=== PATIENT | male | born 1935 | race African-American/Black ===

== ENCOUNTER 2018-04-26 07:13 | Day surgery (SDC) | payer MEDICARE ==
[~2018-04-26] VITALS: Ht 167.6 cm; Wt 67.6 kg
[~2018-04-26 07:13] MED LIST: ADOVART; ATOR10TA PO; ELIQUIS PO; NOVOLOG FLEXPEN; RAMI10CA19 PO
[2018-04-26] MEDS ORDERED: CLOP75TA16 PO (08:09)
[2018-04-26] MEDS ORDERED: DUTA0.5C2 PO (08:09)
[2018-04-26] MEDS ORDERED: VIAG100 PO (08:09)
[2018-04-26] MEDS ORDERED: BUDE6HFA IH (08:09)
[2018-04-26] MEDS ORDERED: ASPI-1159 PO (08:09)
[2018-04-26] MEDS ORDERED: ERGO400C PO (08:10)
[2018-04-26] MEDS ORDERED: METF-414 PO (08:10)
[2018-04-26] MEDS ORDERED: MESA800T PO (08:10)
[2018-04-26] MEDS ORDERED: INSU300I SQ (08:10)
[2018-04-26] MEDS ORDERED: INSNOV SUBCUT (08:10)
[2018-04-26] MEDS ORDERED: ATOR10TA PO (08:10)
[2018-04-26] MEDS ORDERED: IODIXANOL 320MG/ML 100 ML BOTTLE IV ONE (08:38)
[2018-04-26] MEDS ORDERED: LIDOCAINE HCL 1% 20ML VIAL (Pyxis) INJ ONE (08:38)
[2018-04-26] MEDS ORDERED: MIDAZOLAM HCL 2 MG/2 ML VIAL ONE (09:03)
[2018-04-26] MEDS ORDERED: FENTANYL CITRATE/PF 50MCG/ML 2ML VIAL ONE (09:04)
== END 2018-04-26 16:00 | disposition home or self-care (01) ==
LOC: CCL 07:13
PROVIDERS: ATTEND Specialist
DX: I70.211 Atherosclerosis of native arteries of extremities with intermittent claudication, right leg (principal); J44.9 Chronic obstructive pulmonary disease, unspecified; I25.10 Atherosclerotic heart disease of native coronary artery without angina pectoris; C34.90 Malignant neoplasm of unspecified part of unspecified bronchus or lung; I10 Essential (primary) hypertension; E11.9 Type 2 diabetes mellitus without complications; E78.5 Hyperlipidemia, unspecified; K76.0 Fatty (change of) liver, not elsewhere classified; K50.90 Crohn's disease, unspecified, without complications
CPT/HCPCS: 36246; 75710; 82962; 99152; C1760; C1769; C1893; J1644; J2250; J3010; J3490; Q9967; G0500

== ENCOUNTER → 2018-05-22 | Outpatient (CLI) | payer MEDICARE, MEDICAID ==
[~2018-05-22] MED LIST changes: -ADOVART; +ASPI-1159 PO; +BUDE6HFA IH; +CLOP75TA16 PO; +DUTA0.5C2 PO; -ELIQUIS PO; +ERGO400C PO; +INSNOV SUBCUT; +INSU300I SQ; +MESA800T PO; +METF-414 PO; -NOVOLOG FLEXPEN; +VIAG100 PO
== END | disposition home or self-care (01) ==
LOC: RAD 09:31
PROVIDERS: ATTEND Internal Medicine Hematology & Oncology
DX: M85.80 Other specified disorders of bone density and structure, unspecified site (principal); C34.11 Malignant neoplasm of upper lobe, right bronchus or lung; D47.1 Chronic myeloproliferative disease; D47.2 Monoclonal gammopathy; D63.8 Anemia in other chronic diseases classified elsewhere; Z86.718 Personal history of other venous thrombosis and embolism
CPT/HCPCS: 77075

== ENCOUNTER → 2018-08-16 | Outpatient (CLI) | payer MEDICARE, MEDICAID ==
[~2018-08-16] MED LIST changes: -ASPI-1159 PO; +ASPI-1393 PO; +BARIUM SULFATE(VOLUMEN) 450 ML ORAL.SUSP ONE; -CLOP75TA16 PO; +CLOP75TA4 PO; +IOHEXOL-350 100 ML BOTTLE ONE
== END | disposition home or self-care (01) ==
LOC: CT 08:25
PROVIDERS: ATTEND Internal Medicine Gastroenterology
DX: K57.90 Diverticulosis of intestine, part unspecified, without perforation or abscess without bleeding (principal)
CPT/HCPCS: 74177; Q9967

== ENCOUNTER → 2019-03-01 | Outpatient (CLI) | payer MEDICARE, MEDICAID ==
[~2019-03-01] MED LIST changes: -ASPI-1393 PO; +ASPI-1497 PO; -BARIUM SULFATE(VOLUMEN) 450 ML ORAL.SUSP ONE; -IOHEXOL-350 100 ML BOTTLE ONE; -RAMI10CA19 PO; +RAMI10CA68 PO
== END | disposition home or self-care (01) ==
LOC: RAD 11:56
PROVIDERS: ATTEND Family Medicine Adult Medicine
DX: I67.82 Cerebral ischemia (principal); G31.9 Degenerative disease of nervous system, unspecified

== ENCOUNTER → 2020-01-15 | Outpatient (CLI) | payer MEDICARE, MEDICAID ==
[~2020-01-15] MED LIST changes: +LINA5TAB MT; +OMEP20CA14 MT
== END | disposition home or self-care (01) ==
LOC: LAB 13:15
PROVIDERS: ATTEND Specialist
DX: Z01.812 Encounter for preprocedural laboratory examination (principal); R05 Cough; Z20.828 Contact with and (suspected) exposure to other viral communicable diseases
CPT/HCPCS: 87426

== ENCOUNTER → 2021-02-26 | Outpatient (CLI) | payer MEDICARE, MEDICAID ==
[~2021-02-26] MED LIST changes: +BARIUM SULFATE(VOLUMEN) 450 ML ORAL.SUSP ONE; +CLOP-31 PO; -CLOP75TA4 PO; +IOHEXOL-350 100 ML BOTTLE ONE
== END | disposition home or self-care (01) ==
LOC: CT 08:37
PROVIDERS: ATTEND Internal Medicine Gastroenterology
DX: K57.30 Diverticulosis of large intestine without perforation or abscess without bleeding (principal); K50.00 Crohn's disease of small intestine without complications; N28.1 Cyst of kidney, acquired; I70.0 Atherosclerosis of aorta; J43.2 Centrilobular emphysema; N28.89 Other specified disorders of kidney and ureter
CPT/HCPCS: 74177; Q9967

== ENCOUNTER 2021-06-09 22:09 | Inpatient (IN) | payer MEDICARE, MEDICAID ==
[~2021-06-09] VITALS: Ht 165.1 cm; Wt 70.8 kg
[~2021-06-09 22:09] MED LIST changes: +AZIT250T MT; -BARIUM SULFATE(VOLUMEN) 450 ML ORAL.SUSP ONE; -IOHEXOL-350 100 ML BOTTLE ONE; +METH-653 GT
[2021-06-10] VITALS (8 sets, daily range): BP systolic 129–155; BP diastolic 53–94
[2021-06-10] MEDS ORDERED: METHYLPREDNISOLONE SOD SUCC 125 MG/2 ML VIAL IV STA (01:07)
[2021-06-10] MEDS ORDERED: IPRATROPIUM BROMIDE (0.02%) 0.5MG/2.5ML NEB HHN STA (01:07)
[2021-06-10] MEDS ORDERED: MAGNESIUM 2 G PREMIX 50 ML IV ONE (01:15)
[2021-06-10] MEDS: ALBUTEROL (0.083%) 2.5MG/3ML NEB HHN SCH (01:30)
[2021-06-10 02:26] LABS: HEMOGLOBIN. 8.4 g/dL (14.0-18.0); MEAN CORPUSCULAR HEMOGLOBIN 29.2 pg (28.0-32.0); MEAN CORPUSCULAR VOLUME 90.4 fL (80.0-94.0); MEAN PLATELET VOLUME 7.7 fl (7.4-10.4); PLATELET 786 x1000/uL (130-400); RED BLOOD CELL COUNT 2.88 mill/uL (4.7-6.1); RED CELL DISTRIBUTION WIDTH 14.9 % (11.6-14.6)
[2021-06-10 02:35] LABS: CHLORIDE 98 mEq/L (98-107)
[2021-06-10] MEDS ORDERED: CLONIDINE 0.1MG TABLET PO PRN (03:30)
[2021-06-10] MEDS ORDERED: ACETAMINOPHEN 650MG SUPP PR PRN ×2 (03:30)
[2021-06-10] MEDS ORDERED: GUAIFENESIN 200MG/10ML SUGAR FREE UDC PO PRN (03:30)
[2021-06-10] MEDS ORDERED: DOCUSATE SODIUM 100MG CAPSULE PO PRN (03:30)
[2021-06-10] MEDS ORDERED: MAGNESIUM/ALUMINUM HYDROXIDE/SIMETHICONE 30ML UDC PO PRN (03:30)
[2021-06-10] MEDS ORDERED: ONDANSETRON HCL 4MG/2ML INJ IV PRN (03:30)
[2021-06-10] MEDS ORDERED: PIPERACILLIN/TAZ 3.375G PREMIX 50 ML IV NR (03:30)
[2021-06-10] MEDS ORDERED: VANCOMYCIN 1GM PMX (XELLIA) 200 ML IV NR (03:30)
[2021-06-10] MEDS ORDERED: DEXTROSE 50% WATER 50ML SYRINGE IV PRN (03:30)
[2021-06-10] MEDS ORDERED: IPRATROPIUM/ALBUTEROL 0.5-3(2.5)MG/3ML NEB HHN PRN (03:30)
[2021-06-10] MEDS ORDERED: ACETAMINOPHEN 325MG TABLET PO PRN ×2 (03:30)
[2021-06-10 04:24] LABS: PLATELET ESTIMATE INCREASED
[2021-06-10 05:06] LABS: CHLORIDE 99 mEq/L (98-107)
[2021-06-10 05:17] LABS: CREATINE KINASE 88 IU/L (39-308); HDL CHOLESTEROL 39 mg/dL (40-59); LDL CHOLESTEROL 66 mg/dL (5-100)
[2021-06-10 05:22] LABS: BETA HYDROXYBUTYRATE 0.5 mMol/L (0.0-0.3)
[2021-06-10 06:57] LABS: MEAN CORPUSCULAR HEMOGLOBIN 29.6 pg (28.0-32.0); MEAN CORPUSCULAR VOLUME 88.9 fL (80.0-94.0); MEAN PLATELET VOLUME 7.5 fl (7.4-10.4); PLATELET 643 x1000/uL (130-400); RED BLOOD CELL COUNT 2.27 mill/uL (4.7-6.1); RED CELL DISTRIBUTION WIDTH 14.7 % (11.6-14.6)
[2021-06-10 07:07] LABS: HEMATOCRIT. 20.2 % (42.0-52.0)
[2021-06-10 07:12] LABS: HEMOGLOBIN. 6.7 g/dL (14.0-18.0)
[2021-06-10] MEDS ORDERED: INSULIN LISPRO 100 UNITS/ML SUBCUT NR (07:45)
[2021-06-10] MEDS: BLOOD SUGAR DIAGNOSTIC STRIP TEST SCH ×4 (08:02→21:19)
[2021-06-10] MEDS: INSULIN LISPRO 100 UNITS/ML SUBCUT SCH ×4 (08:10→21:22)
[2021-06-10 08:23] LABS: ATYPICAL LYMPHOCYTES 1; PLATELET ESTIMATE INCREASED
[2021-06-10] MEDS ORDERED: ENOXAPARIN 30MG/0.3ML SYR SUBCUT SCH (09:00)
[2021-06-10] MEDS ORDERED: AMLODIPINE 2.5MG TABLET PO NR (13:00)
[2021-06-10] MEDS ORDERED: CEFTRIAXONE 1 G PREMIX 50 ML IV SCH (14:00)
[2021-06-10] MEDS: PREDNISONE 20MG TABLET PO SCH (14:41)
[2021-06-10] MEDS: CEFTRIAXONE 1,000 MG in DEXTROSE 5% WATER 50 ML IV SCH (15:59)
[2021-06-10 17:09] LABS: CLARITY URINE CLEAR (CLEAR); COLOR URINE YELLOW (YELLOW); KETONES URINE NEGATIVE (NEGATIVE); LEUKOCYTE ESTERASE URINE NEGATIVE (NEGATIVE); NITRITE URINE NEGATIVE (NEGATIVE); OCCULT BLOOD URINE TRACE (NEGATIVE); PROTEIN URINE 1+ (NEGATIVE); SPECIFIC GRAVITY URINE 1.026 (1.005-1.030); UROBILINOGEN URINE 0.2 E.U./dL (0.2-1.0)
[2021-06-10] MEDS: AZITHROMYCIN 500 MG in DEXT 5% WATER 250 ML IV SCH (18:22)
[2021-06-10 18:23] LABS: HEMATOCRIT 26.3 % (42.0-52.0); HEMOGLOBIN 8.6 g/dL (14.0-18.0); MEAN CORPUSCULAR HEMOGLOBIN 29.5 pg (28.0-32.0); MEAN CORPUSCULAR VOLUME 89.7 fL (80.0-94.0); PLATELET 672 x1000/uL (130-400); RED BLOOD CELL COUNT 2.93 mill/uL (4.7-6.1); RED CELL DISTRIBUTION WIDTH 14.1 % (11.6-14.6)
[2021-06-10 18:25] LABS: HEMOGLOBIN 8.6 g/dL (14.0-18.0)
[2021-06-10 18:45] LABS: FIBRINOGEN > 850 mg/dL (200-400)
[2021-06-10 18:52] LABS: TOTAL IRON BINDING CAPACITY 274 ug/dL (250-450)
[2021-06-10 19:05] LABS: FERRITIN 286 ng/mL (22-322)
[2021-06-10 20:36] LABS: VITAMIN B12 SERUM >2000 pg/mL pg/mL (211-911)
[2021-06-10] MEDS: AMLODIPINE 2.5MG TABLET PO SCH (21:19)
[2021-06-10] MEDS: ATORVASTATIN CALCIUM 10MG TABLET PO SCH (21:19)
[2021-06-11] VITALS: BP 140/68
[2021-06-11 04:00] VITALS: BP 153/64
[2021-06-11] MEDS: INSULIN LISPRO 100 UNITS/ML SUBCUT SCH ×4 (06:09→21:00)
[2021-06-11] MEDS: BLOOD SUGAR DIAGNOSTIC STRIP TEST SCH ×4 (06:10→21:46)
[2021-06-11 06:30] LABS: HEMOGLOBIN. 8.6 g/dL (14.0-18.0); MEAN CORPUSCULAR HEMOGLOBIN 29.3 pg (28.0-32.0); MEAN CORPUSCULAR VOLUME 88.3 fL (80.0-94.0); MEAN PLATELET VOLUME 7.7 fl (7.4-10.4); PLATELET 690 x1000/uL (130-400); RED BLOOD CELL COUNT 2.94 mill/uL (4.7-6.1); RED CELL DISTRIBUTION WIDTH 14.4 % (11.6-14.6)
[2021-06-11 06:40] LABS: CHLORIDE 102 mEq/L (98-107)
[2021-06-11 06:57] LABS: TOTAL IRON BINDING CAPACITY 197 ug/dL (250-450)
[2021-06-11 08:10] VITALS: BP 159/64
[2021-06-11] MEDS: AMLODIPINE 2.5MG TABLET PO SCH ×2 (09:15→21:37)
[2021-06-11] MEDS: PREDNISONE 20MG TABLET PO SCH (09:15)
[2021-06-11] MEDS: INSULIN GLARGINE 100 UNITS/ML SUBCUT SCH ×2 (11:46→21:47)
[2021-06-11 12:00] VITALS: BP 154/66
[2021-06-11] MEDS: CEFTRIAXONE 1,000 MG in DEXTROSE 5% WATER 50 ML IV SCH (12:27)
[2021-06-11 12:42] LABS: PLATELET ESTIMATE INCREASED
[2021-06-11] MEDS: AZITHROMYCIN 500 MG in DEXT 5% WATER 250 ML IV SCH (13:42)
[2021-06-11] MEDS ORDERED: INSULIN LISPRO 100 UNITS/ML SUBCUT NR (13:45)
[2021-06-11] MEDS ORDERED: BUDESONIDE 0.5MG/2ML NEB HHN SCH (14:00)
[2021-06-11 16:00] VITALS: BP 163/63
[2021-06-11 20:00] VITALS: BP 138/57
[2021-06-11] MEDS: ATORVASTATIN CALCIUM 10MG TABLET PO SCH (21:37)
[2021-06-12] VITALS: BP 143/60
[2021-06-12 04:00] VITALS: BP 158/67
[2021-06-12 06:17] LABS: BASOPHILS % 0.3 % (0.0-2.0); EOSINOPHILS % 0.6 % (0.0-5.0); HEMATOCRIT. 27.1 % (42.0-52.0); LYMPHOCYTES % 8.4 % (20.0-50.0); MEAN CORPUSCULAR HEMOGLOBIN 29.3 pg (28.0-32.0); MEAN CORPUSCULAR VOLUME 88.1 fL (80.0-94.0); MEAN PLATELET VOLUME 7.9 fl (7.4-10.4); MONOCYTES % 5.5 % (2.0-8.0); NEUTROPHILS % 85.2 % (40.0-76.0); PLATELET 788 x1000/uL (130-400); RED BLOOD CELL COUNT 3.07 mill/uL (4.7-6.1); RED CELL DISTRIBUTION WIDTH 14.4 % (11.6-14.6)
[2021-06-12] MEDS: BLOOD SUGAR DIAGNOSTIC STRIP TEST SCH ×2 (06:52→11:33)
[2021-06-12 07:01] LABS: CHLORIDE 104 mEq/L (98-107)
[2021-06-12 07:07] LABS: PHOSPHORUS 2.3 mg/dL (2.5-4.9)
[2021-06-12 08:00] VITALS: BP 157/66
[2021-06-12] MEDS: INSULIN GLARGINE 100 UNITS/ML SUBCUT SCH (08:58)
[2021-06-12] MEDS: INSULIN LISPRO 100 UNITS/ML SUBCUT SCH ×2 (08:59→11:55)
[2021-06-12] MEDS: AMLODIPINE 2.5MG TABLET PO SCH (08:59)
[2021-06-12 12:00] VITALS: BP 170/81
[2021-06-12 13:11] VITALS: BP 141/66
[2021-06-12] MEDS: CEFTRIAXONE 1,000 MG in DEXTROSE 5% WATER 50 ML IV SCH (13:14)
[2021-06-12 13:24] VITALS: BP 141/66
[2021-06-12] MEDS: AZITHROMYCIN 500 MG in DEXT 5% WATER 250 ML IV SCH (14:08)
== END 2021-06-12 16:43 | disposition home health service (06) | DRG 871 ==
LOC: ER 22:09 → MICUSO 06-10 02:34 → 6WST 06-10 05:28
PROVIDERS: ADMIT Family Medicine Adult Medicine; ATTEND Family Medicine Adult Medicine
PROC: 30233N1 Transfusion of Nonautologous Red Blood Cells into Peripheral Vein, Percutaneous Approach (ICD-10-PCS; principal; 2021-06-10)
DX: A41.9 Sepsis, unspecified organism (principal); J96.01 Acute respiratory failure with hypoxia; J18.9 Pneumonia, unspecified organism; E44.0 Moderate protein-calorie malnutrition; D62 Acute posthemorrhagic anemia; J44.0 Chronic obstructive pulmonary disease with (acute) lower respiratory infection; K50.90 Crohn's disease, unspecified, without complications; K92.2 Gastrointestinal hemorrhage, unspecified; K57.90 Diverticulosis of intestine, part unspecified, without perforation or abscess without bleeding; E11.65 Type 2 diabetes mellitus with hyperglycemia; E11.51 Type 2 diabetes mellitus with diabetic peripheral angiopathy without gangrene; D75.839 Thrombocytosis, unspecified; E78.00 Pure hypercholesterolemia, unspecified; E78.5 Hyperlipidemia, unspecified; N40.0 Benign prostatic hyperplasia without lower urinary tract symptoms; I25.10 Atherosclerotic heart disease of native coronary artery without angina pectoris; I10 Essential (primary) hypertension; R07.9 Chest pain, unspecified; M81.0 Age-related osteoporosis without current pathological fracture; R55 Syncope and collapse; Z20.822 Contact with and (suspected) exposure to COVID-19; Z92.3 Personal history of irradiation; Z87.01 Personal history of pneumonia (recurrent); Z90.2 Acquired absence of lung [part of]; Z87.440 Personal history of urinary (tract) infections; Z86.16 Personal history of COVID-19; Z85.118 Personal history of other malignant neoplasm of bronchus and lung; Z86.718 Personal history of other venous thrombosis and embolism; Z82.49 Family history of ischemic heart disease and other diseases of the circulatory system; Z86.73 Personal history of transient ischemic attack (TIA), and cerebral infarction without residual deficits; Z95.5 Presence of coronary angioplasty implant and graft; Z83.3 Family history of diabetes mellitus; Z79.899 Other long term (current) drug therapy; Z79.82 Long term (current) use of aspirin; Z79.02 Long term (current) use of antithrombotics/antiplatelets; Z79.4 Long term (current) use of insulin; Z87.891 Personal history of nicotine dependence; Z68.26 Body mass index [BMI] 26.0-26.9, adult
CPT/HCPCS: 36415; 71045; 80048; 80053; 80061; 81003; 82010; 82550; 82607; 82728; 82746; 82962; 83036; 83540; 83550; 83605; 83735; 83880; 84100; 84145; 84443; 84484; 85018; 85025; 85027; 85044; 85384; 86850; 86900; 86920; 87426; 93005; 93306; 93970; 94640; 99285; J0456; J0696; J1650; J1815; J2543; J2930; J3370; J3475; J7060; J7512; P9016

== ENCOUNTER 2022-01-30 15:53 | Emergency (ER) | payer MEDICARE, MEDICAID ==
[~2022-01-30] VITALS: Ht 167.6 cm; Wt 77.0 kg
[2022-01-30 21:10] LABS: BASOPHILS % 1.5 % (0.0-2.0); EOSINOPHILS % 4.1 % (0.0-5.0); HEMOGLOBIN. 12.5 g/dL (14.0-18.0); LYMPHOCYTES % 23.1 % (20.0-50.0); MEAN CORPUSCULAR HEMOGLOBIN 30.3 pg (28.0-32.0); MEAN CORPUSCULAR VOLUME 89.4 fL (80.0-94.0); MEAN PLATELET VOLUME 8.2 fl (7.4-10.4); MONOCYTES % 9.5 % (2.0-8.0); NEUTROPHILS % 61.8 % (40.0-76.0); PLATELET 551 x1000/uL (130-400); RED BLOOD CELL COUNT 4.13 mill/uL (4.7-6.1); RED CELL DISTRIBUTION WIDTH 13.5 % (11.6-14.6)
[2022-01-30] MEDS ORDERED: MECL-186 MT (21:16)
[2022-01-30 21:17] LABS: CHLORIDE 107 mEq/L (98-107)
[2022-01-30 22:14] VITALS: BP 179/69
== END 2022-01-30 22:20 | disposition home or self-care (01) ==
LOC: ER 16:40
DX: I63.531 Cerebral infarction due to unspecified occlusion or stenosis of right posterior cerebral artery (principal); I10 Essential (primary) hypertension; E11.9 Type 2 diabetes mellitus without complications; J44.9 Chronic obstructive pulmonary disease, unspecified; Z86.73 Personal history of transient ischemic attack (TIA), and cerebral infarction without residual deficits; Z79.4 Long term (current) use of insulin; Z79.82 Long term (current) use of aspirin
CPT/HCPCS: 36415; 71045; 80053; 82962; 84484; 85025; 93005; 99285

== ENCOUNTER 2022-04-23 12:43 | Inpatient (IN) | payer MEDICARE, MEDICAID ==
[~2022-04-23] VITALS: Ht 167.6 cm; Wt 54.9 kg
[~2022-04-23 12:43] MED LIST changes: +MECL-186 MT
[2022-04-23 16:44] LABS: CHLORIDE 111 mEq/L (98-107)
[2022-04-23] MEDS ORDERED: CLONIDINE 0.1MG TABLET PO PRN (16:45)
[2022-04-23] MEDS ORDERED: ACETAMINOPHEN 325MG TABLET PO PRN (16:45)
[2022-04-23] MEDS ORDERED: ONDANSETRON HCL 4MG/2ML INJ IV PRN (16:45)
[2022-04-23] MEDS ORDERED: MORPHINE SULFATE 2 MG/ML CPJ (NOT FOR IM USE) IV PRN (16:45)
[2022-04-23 16:48] LABS: BASOPHILS % 0.7 % (0.0-2.0); EOSINOPHILS % 3.3 % (0.0-5.0); HEMATOCRIT. 31.4 % (42.0-52.0); LYMPHOCYTES % 16.7 % (20.0-50.0); MEAN CORPUSCULAR HEMOGLOBIN 29.5 pg (28.0-32.0); MEAN CORPUSCULAR VOLUME 92.6 fL (80.0-94.0); MONOCYTES % 11.3 % (2.0-8.0); PLATELET 499 x1000/uL (130-400); RED BLOOD CELL COUNT 3.39 mill/uL (4.7-6.1); RED CELL DISTRIBUTION WIDTH 13.4 % (11.6-14.6)
[2022-04-23] MEDS ORDERED: ATORVASTATIN CALCIUM 10MG TABLET PO SCH (17:00)
[2022-04-23] MEDS ORDERED: DEXTROSE 50% WATER 50ML SYRINGE IV PRN (17:00)
[2022-04-23] MEDS ORDERED: CALCIUM CHLORIDE 1GM/10ML SYR IV NR (17:30)
[2022-04-23] MEDS ORDERED: INSULIN REGULAR (HUMULIN R) 300UNITS/3ML VIAL IV NR (17:30)
[2022-04-23] MEDS ORDERED: DEXTROSE 50% WATER 50ML SYRINGE IV NR (17:30)
[2022-04-23] MEDS ORDERED: SODIUM POLYSTYRENE SULFONATE 15 G/60 ML BOT PO NR (17:30)
[2022-04-23] MEDS ORDERED: SODIUM BICARBONATE 8.4% 1 MEQ/ML 50ML SYR IV ONE (17:45)
[2022-04-23] MEDS ORDERED: ALBUTEROL (0.083%) 2.5MG/3ML NEB HHN ONE (17:45)
[2022-04-23] MEDS ORDERED: SODIUM POLYSTYRENE SULFONATE 15 G/60 ML BOT PO ONE (17:45)
[2022-04-23] MEDS ORDERED: DEXTROSE 50% WATER 50ML SYRINGE IV ONE (17:45)
[2022-04-23] MEDS ORDERED: INSULIN REGULAR (HUMULIN R) 300UNITS/3ML VIAL IV ONE (17:45)
[2022-04-23] MEDS: ENOXAPARIN 40MG/0.4ML SYR SUBCUT SCH (18:00)
[2022-04-23] MEDS: BLOOD SUGAR DIAGNOSTIC STRIP TEST SCH ×2 (19:22→21:00)
[2022-04-23] MEDS: INSULIN LISPRO 100 UNITS/ML SUBCUT SCH ×2 (19:23→21:00)
[2022-04-24] VITALS (7 sets, daily range): BP systolic 121–151; BP diastolic 50–74
[2022-04-24] MEDS: BLOOD SUGAR DIAGNOSTIC STRIP TEST SCH ×4 (05:46→20:45)
[2022-04-24] MEDS: INSULIN LISPRO 100 UNITS/ML SUBCUT SCH ×4 (05:46→20:44)
[2022-04-24 07:38] LABS: BASOPHILS % 0.7 % (0.0-2.0); EOSINOPHILS % 2.9 % (0.0-5.0); HEMATOCRIT. 27.6 % (42.0-52.0); HEMOGLOBIN. 9.2 g/dL (14.0-18.0); LYMPHOCYTES % 17.1 % (20.0-50.0); MEAN CORPUSCULAR HEMOGLOBIN 30.1 pg (28.0-32.0); MEAN CORPUSCULAR VOLUME 90.1 fL (80.0-94.0); MEAN PLATELET VOLUME 8.2 fl (7.4-10.4); MONOCYTES % 13.5 % (2.0-8.0); NEUTROPHILS % 65.8 % (40.0-76.0); PLATELET 457 x1000/uL (130-400); RED BLOOD CELL COUNT 3.07 mill/uL (4.7-6.1); RED CELL DISTRIBUTION WIDTH 13.5 % (11.6-14.6)
[2022-04-24] MEDS ORDERED: NALOXONE HCL 0.4MG/ML VIAL IV PRN (08:00)
[2022-04-24 08:33] LABS: CHLORIDE 113 mEq/L (98-107)
[2022-04-24] MEDS: METFORMIN HCL 500MG TABLET PO SCH ×3 (09:00→18:03)
[2022-04-24] MEDS: LINAGLIPTIN 5MG TABLET PO SCH (10:14)
[2022-04-24] MEDS: ASPIRIN 81MG EC TABLET PO SCH (10:14)
[2022-04-24] MEDS: CLOPIDOGREL 75MG TABLET PO SCH (10:14)
[2022-04-24] MEDS: AZITHROMYCIN 250 MG TABLET PO SCH (12:29)
[2022-04-24] MEDS: ENOXAPARIN 40MG/0.4ML SYR SUBCUT SCH (18:07)
[2022-04-24] MEDS: DUTASTERIDE 0.5MG CAPSULE PO SCH ×2 (20:43→20:46)
[2022-04-24] MEDS: ATORVASTATIN CALCIUM 10MG TABLET PO SCH (20:43)
[2022-04-25] VITALS: BP 127/49
[2022-04-25 04:00] VITALS: BP 109/48
[2022-04-25 06:29] LABS: BASOPHILS % 0.6 % (0.0-2.0); EOSINOPHILS % 2.9 % (0.0-5.0); HEMATOCRIT. 28.9 % (42.0-52.0); HEMOGLOBIN. 9.4 g/dL (14.0-18.0); LYMPHOCYTES % 19.4 % (20.0-50.0); MEAN CORPUSCULAR HEMOGLOBIN 29.5 pg (28.0-32.0); MEAN CORPUSCULAR VOLUME 90.6 fL (80.0-94.0); MEAN PLATELET VOLUME 7.7 fl (7.4-10.4); MONOCYTES % 12.6 % (2.0-8.0); NEUTROPHILS % 64.5 % (40.0-76.0); PLATELET 453 x1000/uL (130-400); RED BLOOD CELL COUNT 3.19 mill/uL (4.7-6.1); RED CELL DISTRIBUTION WIDTH 13.2 % (11.6-14.6)
[2022-04-25] MEDS: BLOOD SUGAR DIAGNOSTIC STRIP TEST SCH ×4 (06:45→21:57)
[2022-04-25] MEDS: INSULIN LISPRO 100 UNITS/ML SUBCUT SCH ×4 (06:45→21:00)
[2022-04-25 07:13] LABS: CHLORIDE 111 mEq/L (98-107)
[2022-04-25 08:00] VITALS: BP 118/41
[2022-04-25] MEDS: METFORMIN HCL 500MG TABLET PO SCH ×2 (08:27→17:30)
[2022-04-25] MEDS: CLOPIDOGREL 75MG TABLET PO SCH (08:28)
[2022-04-25] MEDS: LINAGLIPTIN 5MG TABLET PO SCH (08:28)
[2022-04-25] MEDS: ASPIRIN 81MG EC TABLET PO SCH (08:28)
[2022-04-25] MEDS: AZITHROMYCIN 250 MG TABLET PO SCH (08:28)
[2022-04-25] MEDS ORDERED: GUAIFENESIN-DM 200MG-20MG/10ML UDC PO PRN (10:30)
[2022-04-25 10:32] LABS: CREATINE KINASE 57 IU/L (39-308)
[2022-04-25 12:00] VITALS: BP 128/46
[2022-04-25] MEDS: OMEPRAZOLE 20MG CAPSULE EXTENDED RELEASE PO SCH (12:31)
[2022-04-25] MEDS ORDERED: SODIUM CHLORIDE 0.45% 500 ML IV ONE (14:00)
[2022-04-25 16:00] VITALS: BP 138/52
[2022-04-25] MEDS ORDERED: ENOXAPARIN 30MG/0.3ML SYR SUBCUT SCH (18:00)
[2022-04-25 20:00] VITALS: BP 141/51
[2022-04-25] MEDS: ATORVASTATIN CALCIUM 10MG TABLET PO SCH (21:56)
[2022-04-26] VITALS: BP_SYST 126; BP_SYST 147; BP_DIAS 44; BP_DIAS 50
[2022-04-26 04:00] VITALS: BP 126/44
[2022-04-26] MEDS: DUTASTERIDE 0.5MG CAPSULE PO SCH (06:04)
[2022-04-26] MEDS: INSULIN LISPRO 100 UNITS/ML SUBCUT SCH ×2 (06:04→12:10)
[2022-04-26] MEDS: BLOOD SUGAR DIAGNOSTIC STRIP TEST SCH ×2 (06:04→12:07)
[2022-04-26] MEDS: OMEPRAZOLE 20MG CAPSULE EXTENDED RELEASE PO SCH (06:04)
[2022-04-26 06:36] LABS: BASOPHILS % 0.6 % (0.0-2.0); HEMATOCRIT. 25.9 % (42.0-52.0); HEMOGLOBIN. 8.5 g/dL (14.0-18.0); LYMPHOCYTES % 23.6 % (20.0-50.0); MEAN CORPUSCULAR HEMOGLOBIN 29.6 pg (28.0-32.0); MEAN CORPUSCULAR VOLUME 90.1 fL (80.0-94.0); MONOCYTES % 12.2 % (2.0-8.0); NEUTROPHILS % 59.6 % (40.0-76.0); PLATELET 435 x1000/uL (130-400); RED BLOOD CELL COUNT 2.88 mill/uL (4.7-6.1); RED CELL DISTRIBUTION WIDTH 13.2 % (11.6-14.6)
[2022-04-26 07:59] LABS: CHLORIDE 109 mEq/L (98-107)
[2022-04-26 08:00] VITALS: BP 139/60
[2022-04-26] MEDS: AZITHROMYCIN 250 MG TABLET PO SCH (09:01)
[2022-04-26] MEDS: METFORMIN HCL 500MG TABLET PO SCH (09:01)
[2022-04-26] MEDS: LINAGLIPTIN 5MG TABLET PO SCH (09:01)
[2022-04-26 12:00] VITALS: BP 152/64
[2022-04-26 12:22] VITALS: BP 152/64
== END 2022-04-26 12:45 | disposition home or self-care (01) | DRG 205 ==
LOC: ER 12:43 → MICUSO 16:42 → 7EST 04-24 02:04
PROVIDERS: ADMIT Internal Medicine Nephrology; ATTEND Internal Medicine Nephrology
DX: M94.0 Chondrocostal junction syndrome [Tietze] (principal); E43 Unspecified severe protein-calorie malnutrition; Z68.1 Body mass index [BMI] 19.9 or less, adult; R65.10 Systemic inflammatory response syndrome (SIRS) of non-infectious origin without acute organ dysfunction; E87.5 Hyperkalemia; I25.10 Atherosclerotic heart disease of native coronary artery without angina pectoris; E11.51 Type 2 diabetes mellitus with diabetic peripheral angiopathy without gangrene; E78.00 Pure hypercholesterolemia, unspecified; D64.9 Anemia, unspecified; I10 Essential (primary) hypertension; H91.10 Presbycusis, unspecified ear; J44.9 Chronic obstructive pulmonary disease, unspecified; M81.0 Age-related osteoporosis without current pathological fracture; R79.89 Other specified abnormal findings of blood chemistry; K57.90 Diverticulosis of intestine, part unspecified, without perforation or abscess without bleeding; E78.5 Hyperlipidemia, unspecified; Z20.822 Contact with and (suspected) exposure to COVID-19; I34.0 Nonrheumatic mitral (valve) insufficiency; N40.0 Benign prostatic hyperplasia without lower urinary tract symptoms; Z85.118 Personal history of other malignant neoplasm of bronchus and lung; Z86.73 Personal history of transient ischemic attack (TIA), and cerebral infarction without residual deficits; Z95.5 Presence of coronary angioplasty implant and graft; Z87.891 Personal history of nicotine dependence; Z79.02 Long term (current) use of antithrombotics/antiplatelets; Z79.4 Long term (current) use of insulin; Z79.51 Long term (current) use of inhaled steroids; Z79.84 Long term (current) use of oral hypoglycemic drugs; Z79.899 Other long term (current) drug therapy; Z82.49 Family history of ischemic heart disease and other diseases of the circulatory system; Z83.3 Family history of diabetes mellitus
CPT/HCPCS: 36415; 71045; 80048; 80053; 80061; 82550; 82962; 83036; 83880; 84132; 84443; 84484; 85025; 87426; 93005; 93306; 93970; 94640; 99285; J1650; J1815; J3490

== ENCOUNTER → 2022-10-06 | Day surgery (SDC) | payer MEDICARE, MEDICAID ==
[~2022-10-06] VITALS: Ht 167.6 cm; Wt 68.5 kg
[~2022-10-06] MED LIST changes: +ACETAMINOPHEN 325MG TABLET PO PRN; +AMLO10TA80 PO; +ATROPINE SULFATE 1MG/10ML SYR IV PRN; +AZAT50TA24 PO; +DAPA5TAB PO; +FENTANYL CITRATE/PF 50MCG/ML 2ML VIAL ONE; +FLUT1BLS3 IH; +GABA-529 PO; +HEPARIN 1000 UNITS/ML 10ML ONE; +IODIXANOL 320MG/ML 100 ML BOTTLE IV ONE; +LEVVL SQ; +LIDOCAINE HCL 1% 20ML VIAL (Pyxis) INJ ONE; +MEGE40TA33 PO; +MIDAZOLAM HCL 2 MG/2 ML VIAL ONE; +MONT-39 PO; +NATE120T PO; +NATE60TA PO; +ONDANSETRON HCL 4MG/2ML INJ IV PRN; +SITA50TA3 PO; +TELM40TA7 PO
== END | disposition home or self-care (01) ==
LOC: RAD 06:36
PROVIDERS: ATTEND Specialist
DX: I73.9 Peripheral vascular disease, unspecified (principal); I25.10 Atherosclerotic heart disease of native coronary artery without angina pectoris; I12.9 Hypertensive chronic kidney disease with stage 1 through stage 4 chronic kidney disease, or unspecified chronic kidney disease; E11.22 Type 2 diabetes mellitus with diabetic chronic kidney disease; N18.9 Chronic kidney disease, unspecified; E78.00 Pure hypercholesterolemia, unspecified; J44.9 Chronic obstructive pulmonary disease, unspecified; Z79.899 Other long term (current) drug therapy; Z98.890 Other specified postprocedural states; Z79.84 Long term (current) use of oral hypoglycemic drugs; Z79.82 Long term (current) use of aspirin; Z87.891 Personal history of nicotine dependence; Z82.49 Family history of ischemic heart disease and other diseases of the circulatory system; Z83.3 Family history of diabetes mellitus
CPT/HCPCS: 82962; 36246; 75710; J3010; Q9967; J1644 ×2; J3490; J2250; Z7610 ×7; 75716

== ENCOUNTER → 2022-11-26 | Outpatient (CLI) | payer MEDICARE, MEDICAID ==
[~2022-11-26] MED LIST changes: -ACETAMINOPHEN 325MG TABLET PO PRN; -ATOR10TA PO; -ATROPINE SULFATE 1MG/10ML SYR IV PRN; -AZIT250T MT; -BUDE6HFA IH; -ERGO400C PO; -FENTANYL CITRATE/PF 50MCG/ML 2ML VIAL ONE; -HEPARIN 1000 UNITS/ML 10ML ONE; -INSU300I SQ; -IODIXANOL 320MG/ML 100 ML BOTTLE IV ONE; -LIDOCAINE HCL 1% 20ML VIAL (Pyxis) INJ ONE; -LINA5TAB MT; -METH-653 GT; -MIDAZOLAM HCL 2 MG/2 ML VIAL ONE; -OMEP20CA14 MT; -ONDANSETRON HCL 4MG/2ML INJ IV PRN; -RAMI10CA68 PO; -VIAG100 PO
== END | disposition home or self-care (01) ==
LOC: RAD 10:37
PROVIDERS: ATTEND Internal Medicine Hematology & Oncology
DX: C34.11 Malignant neoplasm of upper lobe, right bronchus or lung (principal); D47.1 Chronic myeloproliferative disease; D47.2 Monoclonal gammopathy; N18.31 Chronic kidney disease, stage 3a; D63.1 Anemia in chronic kidney disease; M47.815 Spondylosis without myelopathy or radiculopathy, thoracolumbar region; M19.042 Primary osteoarthritis, left hand; M19.041 Primary osteoarthritis, right hand
CPT/HCPCS: 77075

== ENCOUNTER → 2022-12-24 | Outpatient (CLI) | payer MEDICARE, MEDICAID | END | disposition home or self-care (01) | LOC: US 12:25 | PROVIDERS: ATTEND Internal Medicine Nephrology | DX: N28.1 Cyst of kidney, acquired (principal); N18.30 Chronic kidney disease, stage 3 unspecified | CPT/HCPCS: 76770 ==

== ENCOUNTER 2024-01-28 12:42 | Emergency (ER) | payer MEDICARE, MEDICAID ==
[~2024-01-28] VITALS: Ht 167.6 cm; Wt 72.5 kg
[~2024-01-28 12:42] MED LIST changes: -MECL-186 MT; -NATE120T PO; +NATE120T9 PO; -NATE60TA PO; +NATE60TA13 PO; +[UNRECOGNIZED DRUG - CODE] MT
[2024-01-28 12:57] VITALS: O2SAT 99
[2024-01-28 13:53] LABS: BASOPHILS % 0.9 % (0.0-2.0); EOSINOPHILS % 2.1 % (0.0-5.0); HEMATOCRIT. 30.7 % (42.0-52.0); HEMOGLOBIN. 9.6 g/dL (14.0-18.0); MEAN CORPUSCULAR HGB CONC 31.5 g/dL (31.0-37.0); MEAN CORPUSCULAR VOLUME 98.4 fL (80.0-94.0); MEAN PLATELET VOLUME 7.4 fl (7.4-10.4); MONOCYTES % 8.9 % (2.0-8.0); NEUTROPHILS % 71.1 % (40.0-76.0); PLATELET 644 x1000/uL (130-400); RED BLOOD CELL COUNT 3.12 mill/uL (4.7-6.1); RED CELL DISTRIBUTION WIDTH 13.9 % (11.6-14.6); WHITE BLOOD COUNT 15.7 x1000/uL (4.5-11.0)
[2024-01-28 13:59] LABS: POTASSIUM 4.5 mEq/L (3.5-5.1)
[2024-01-28 14:01] LABS: CALCIUM 9.6 mg/dL (8.7-10.4)
[2024-01-28 14:06] LABS: CREATININE 1.6 mg/dL (0.6-1.3)
[2024-01-28 15:00] VITALS: BP 138/63; PULSE 86; RESP 18; TEMP 36.61404; O2SAT 97
== END 2024-01-28 15:06 | disposition home or self-care (01) ==
LOC: ER 12:57
DX: R04.0 Epistaxis (principal); J44.9 Chronic obstructive pulmonary disease, unspecified; I10 Essential (primary) hypertension; E11.9 Type 2 diabetes mellitus without complications; E78.5 Hyperlipidemia, unspecified; Z79.899 Other long term (current) drug therapy; Z79.82 Long term (current) use of aspirin
CPT/HCPCS: 36415; 80048; 85025; 99283